=== PATIENT | female | born 2000 ===

== ENCOUNTER → 2024-07-31 | Outpatient (REF) | payer OTHER ==
[2024-07-31 13:39] LABS: THYROID STIMULATING HORMONE 2.005 uIU/ML (0.55-4.78)
[2024-07-31 13:41] LABS: ALBUMIN 4.1 G/DL (3.2-5.2); ALKALINE PHOSPHATASE 70 U/L (35-104); ALT/SGPT 15 U/L (7.0-40); AST/SGOT 12 U/L (<34); BILIRUBIN,TOTAL 0.5 MG/DL (0.3-1.2); BLOOD UREA NITROGEN 9 MG/DL (9-23); CALCIUM LEVEL 9.1 MG/DL (8.5-10.1); CARBON DIOXIDE LEVEL 24 MMOL/L (20-31); CHLORIDE LEVEL 108 MMOL/L (98-107); CREATININE FOR GFR 0.61 MG/DL (0.55-1.30); GLOMERULAR FILTRATION RATE > 90.0 (>60); GLUCOSE, FASTING 99 MG/DL (60-100); POTASSIUM SERUM 4.5 MMOL/L (3.5-5.1); SODIUM LEVEL 142 MMOL/L (136-145); TOTAL PROTEIN 7.2 G/DL (5.7-8.2)
== END ==
LOC: M LAB REF 12:19
PROVIDERS: ATTEND Student in an Organized Health Care Education/Training Program
DX: Z68.29 Body mass index [BMI] 29.0-29.9, adult (principal)

== ENCOUNTER → 2025-02-05 | Outpatient (REF) | payer OTHER ==
[2025-02-05 13:15] LABS: BASO # 0.0 10^3/uL (0.0-0.2); BASO % 0.7 % (0.0-1.0); EOS # 0.1 10^3/uL (0.0-0.5); EOS % 2.9 % (0.0-3.0); LYMPH # 1.6 10^3/uL (1.5-5.0); LYMPH % 38.0 % (24.0-44.0); MONO # 0.4 10^3/uL (0.0-0.8); MONO % 9.9 % (2.0-8.0); NEUTROPHILS # 2.0 10^3/uL (1.5-8.5); NEUTROPHILS % 48.3 % (36.0-66.0); PLATELET COUNT, AUTOMATED 250 10^3/uL (150-450)
[2025-02-05 13:21] LABS: C REACTIVE PROTEIN QUANTITATIV < 0.50 MG/DL (<1.0); RHEUMATOID FACTOR QUANT < 3.5 IU/ML (<14)
[2025-02-05 13:22] LABS: ALT/SGPT 18 U/L (7.0-40); AST/SGOT 23 U/L (<34); CALCIUM LEVEL 8.9 MG/DL (8.5-10.1); CARBON DIOXIDE LEVEL 27 MMOL/L (20-31); CHLORIDE LEVEL 106 MMOL/L (98-107); CREATININE FOR GFR 0.67 MG/DL (0.55-1.30); GLOMERULAR FILTRATION RATE > 90.0 (>60); POTASSIUM SERUM 4.4 MMOL/L (3.5-5.1); SODIUM LEVEL 141 MMOL/L (136-145)
[2025-02-06 11:12] LABS: SSA SJOGRENS A <1.0 NEG AI (<1.0 NEG); SSB SJOGRENS B <1.0 NEG AI (<1.0 NEG)
[2025-02-09 12:33] LABS: HLA-B27 Negative (Negative)
== END ==
LOC: M LAB REF 12:05
PROVIDERS: ATTEND Student in an Organized Health Care Education/Training Program
DX: R22.33 Localized swelling, mass and lump, upper limb, bilateral (principal)